=== PATIENT | female | born 1990 | race Caucasian/White ===

== ENCOUNTER 2017-05-19 13:04 | Outpatient (CLI) | payer OTHER ==
[~2017-05-19] VITALS: Ht 157.5 cm; Wt 50.0 kg
[2017-05-19 13:31] VITALS: BP 101/59
[2017-05-19 13:58] LABS: MEAN CORPUSCULAR HEMOGLOBIN 31.1 pg (27.0-33.0); MEAN CORPUSCULAR VOLUME 86.4 fl (80.0-96.0); RED CELL DISTRIBUTION WIDTH 13.5 % (11.5-14.5)
--- NOTE | 2017-05-19 17:49 | HPE ---
DATE OF ADMISSION: 05/19/2017 HISTORY: This is a 27-year-old 4, para 2, abortio 1, at 20 weeks and 1 day gestation. Fall on her buttocks. No loss of fluid. No loss of consciousness. movements are present. Last menstrual period (LMP) 12/20/2016, estimated date of confinement (EDC) 09/27/2017. She had a history of dysuria and kidney stones. PAST HISTORY: 2011: 41 weeks spontaneous vaginal delivery male 6 pounds 15 ounces, induction of labor. 2013: 41 weeks spontaneous vaginal delivery 6 pounds 6 ounce female induction of labor. 2016: Spontaneous . LABORATORY DATA: B positive, HIV negative. Hepatitis negative, RPR negative. Varicella immune. Pap normal. Urine negative. Gonorrhea and chlamydia are negative. Hemoglobin 11.0, hematocrit 30.7, platelets 237. Betke-Kleihauer is pending. PHYSICAL EXAMINATION: On examination no acute distress. Symphysis fundus height is 20, vertex presenting. Ultrasound shows ALF 10.6, placenta anterior. Cervix is closed. Good movement. Cardiac activity 154 beats per minute. Blood pressure 101/59, respirations 18, pulse 71, temperature 98.5. Hemoglobin 11.0, hematocrit 30.2, platelets are 237. The rest the examination is unremarkable. Normocephalic, atraumatic. Neck full range of motion. Pupils equal and reactive to light. Distal pulses symmetric. No evidence of deep venous thrombosis (DVT), pulmonary embolism (PE), or superficial phlebitis. No costovertebral angle tenderness. Nontender uterus. Four quadrant bowel sounds are noted. heart is present. No rashes, lesions or pruritus. No arthralgia or myalgia. No complaints of cough, wheezes, shortness of breath or dyspnea on exertion. No chest pain. No bruising. No bleeding. Neuro complete. No incontinence, urgency or frequency. No nausea, vomiting, diarrhea or constipation. She does not smoke or drink or abuse drugs. There is no domestic violence. ASSESSMENT: In summary we have a 20+ week of gestation who had a fall on her buttocks, which she has a bruise on her buttocks but, otherwise insignificant. Precautions were given. The patient was discharged undelivered to followup in the clinic routine time.
== END 2017-05-19 13:49 | disposition home or self-care (01) ==
LOC: M LDO 13:04
PROVIDERS: ATTEND Obstetrics & Gynecology
DX: O99.89 Other specified diseases and conditions complicating pregnancy, childbirth and the puerperium (principal); S30.0XXA Contusion of lower back and pelvis, initial encounter; Z3A.20 20 weeks gestation of pregnancy; X58.XXXA Exposure to other specified factors, initial encounter; Y93.9 Activity, unspecified; Y92.9 Unspecified place or not applicable; Y99.8 Other external cause status

== ENCOUNTER 2017-10-09 02:06 | Inpatient (IN) | payer OTHER ==
[~2017-10-09] VITALS: Ht 157.5 cm; Wt 60.9 kg
[2017-10-09] VITALS (9 sets, daily range): BP systolic 114–130; BP diastolic 54–72
[~2017-10-09 02:06] MED LIST: ZANTTAB PO
[2017-10-09] MEDS ORDERED: OXYTOCIN 30 UNITS IN 0.9% NaCl 500ML IV BAG (J2590) As Ordered ONE (02:22)
[2017-10-09] MEDS ORDERED: LR 1,000 ML IV SCH (02:48)
[2017-10-09] MEDS ORDERED: OXYTOCIN DRIP 30 UNITS in APPROPRIATE DILUENT 1 EA IV SCH (02:48)
--- NOTE | 2017-10-09 02:59 | HPEPDOC ---
Obstetrical History & Physical General Date of Admission Oct 09, 2017 at 02:10 History of Present Illness 27 y/o at 40+6 with reg painful ctx's. Feeling pushy. No LOF/VB. Chief Complaint: Contractions, term Information Provided By: Patient Care Care: Good Care Dating Final EDC by: 1st trimester (US) (7 wk US) Past Medical History Past Obstetrical History : Type of Delivery: Spontaneous Vaginal Del. (both induced at 41 wks, both 's, both 6 lbs, 1 SAB) [employer] History: Spontaneous (x1) Past Medical History Medical History h/o UTI's Surgical History: Appendectomy, [place] teeth Family History Significant Family History: No pertinent family hx Social History Marital Status: Family situation: Spouse/partner home Psychosocial History: No pertinent psych hx * Smoker: non-smoker Alcohol: Denies Drugs: denies Abuse Violence Screening Have you been hit/kicked/slapp: No Have you been sexually assault: No Imunizations Tdap status: current Allergies Coded Allergies: No Known Allergies (Unverified , 05/19/17) Medications Scheduled PRN Ranitidine Hcl (Zantac 150 Maximum Streng) 150 Mg Tab, 1 TAB PO PRN PRN for HEARTBURN/INDIGESTION Physical Examination Physical Examination GENERAL: Alert and oriented times three. BREAST: . ABDOMEN: Gravid and non-tender to touch. FETUS: Is vertex (VTX) by sterile vaginal examination, C/C/BBOW/+2, EFW 3000 EXTREMITIES: No edema. Laboratory Data [facility] Laboratory Tests 2 10/09/17 02:51: Serology Scanned Report Hepatitis B Testing Urine Culture: No Growth Pertinent Laboratoy Data Blood Type: B+ RBC Antibody Screen: Negative HIV: Negative Hepatitis B: Negative Hepatitis C: Unknown Rapid Plasma Reagin: Immune Rubella: Immune Varicella: Immune Chlamydia/Gonorrhea: Negative Group B Streptococcus: Negative Quad Screen Test: Declined Cystic Fibrosis: Declined Anatomy Ultrasound Ultrasound Date: May 16, 2017 Placenta Location: Anterior Normal Anatomy: Yes Placenta Previa: No Assessment Variability: Moderate Accelerations: Positive Decelerations: None Tocometer Frequency: regular Assessment/Plan Assessment Term C/C. Del'd quickly, see del note. Plan Admit and orient. Waste Picker and consent. Group B Streptococcus (GBS) neg Labs and intravenous (IV) per unit protocol. Lactated Ringers (LR) 125/hr Anticipate normal spontaneous delivery () SESSIONS,MENA Rolon MD Oct 09, 2017 02:58
[2017-10-09 03:00] LABS: MEAN CORPUSCULAR HEMOGLOBIN 25.6 pg (27.0-33.0); MEAN CORPUSCULAR VOLUME 77.6 fl (80.0-96.0); PLATELET COUNT, AUTOMATED 350 10^3/uL (150-450); RED CELL DISTRIBUTION WIDTH 14.4 % (11.5-14.5); WHITE BLOOD COUNT 13.6 10^3/uL (4.0-10.0)
[2017-10-09] MEDS ORDERED: ACETAMINOPHEN TAB 650MG DOSE (2X325MG) PO PRN (03:00)
[2017-10-09] MEDS ORDERED: METOCLOPRAMIDE INJ 10MG/2ML VIAL (J2765) IV PRN (03:00)
[2017-10-09] MEDS ORDERED: MEASLES,MUMPS,RUBELLA VACCINE INJ (MMR-II) (90707) SC SCH (03:00)
[2017-10-09] MEDS ORDERED: DIBUCAINE 1% OINTMENT 30GM TOP PRN (03:00)
[2017-10-09] MEDS ORDERED: RHOGAM 300 MCG (1500 IU) INJ (J2790) IM SCH (03:00)
--- NOTE | 2017-10-09 03:02 | DNPDOC ---
[facility] Delivery Note Delivery Note DATE OF DELIVERY:[id number] @ 0230 PREDELIVERY DIAGNOSIS: 40 6/7 weeks' gestation and labor. POST DELIVERY DIAGNOSIS: Delivered. PROCEDURE: Spontaneous vaginal delivery [employer] OPERATOR: Dr. Arroyo ANESTHESIA: none ESTIMATED BLOOD LOSS: 100 mL. FINDINGS: 6 pound 2 ounce female , Score 9/9, loose nuchal cord times 1 DELIVERY SUMMARY: Once an IV was placed, had her start pushing, and AROM with pickups done, good effort and only a few sets of pushes. Vtx del'd w/o delay and also the ant/post shoulders. Vigorous to abd, cord C/C by FOB. Cord blood. Placenta intact with slight traction. Pit going, fundus firm. No lacs. Uncomplicated. MENA ARROYO MD Oct 09, 2017 03:02
[2017-10-09] MEDS ORDERED: ACET50TA PO (03:35)
[2017-10-09] MEDS: IBUPROFEN 800 MG TAB PO PRN ×2 (05:14→14:06)
[2017-10-09] MEDS: PRENATAL VITAMINS CHEWABLE TABLET PO SCH (08:35)
[2017-10-09] MEDS: DOCUSATE SODIUM 100 MG CAP PO SCH ×2 (08:35→19:50)
[2017-10-10] MEDS: IBUPROFEN 800 MG TAB PO PRN (02:49)
[2017-10-10 06:00] VITALS: BP 128/58
[2017-10-10] MEDS: DOCUSATE SODIUM 100 MG CAP PO SCH (08:53)
[2017-10-10] MEDS: PRENATAL VITAMINS CHEWABLE TABLET PO SCH (08:53)
[2017-10-10] MEDS ORDERED: PRENTAB9 PO (10:53)
[2017-10-10] MEDS ORDERED: IBUP-1114 PO (10:53)
[2017-10-10] MEDS ORDERED: NUPE1OIN2 TOP (10:53)
[2017-10-10] MEDS ORDERED: ACET50TA PO (10:53)
[2017-10-10] MEDS ORDERED: COLA100C5 PO (10:53)
== END 2017-10-10 11:30 | disposition home or self-care (01) | DRG 775 ==
LOC: M LDO 02:06 → M LDI 02:10 → M OBS 05:05
PROVIDERS: ADMIT Obstetrics & Gynecology; ATTEND Obstetrics & Gynecology
PROC: 10E0XZZ Delivery of Products of Conception, External Approach (ICD-10-PCS; principal; 2017-10-09)
PROC: 10907ZC Drainage of Amniotic Fluid, Therapeutic from Products of Conception, Via Natural or Artificial Opening (ICD-10-PCS; 2017-10-09)
DX: O48.0 Post-term pregnancy (principal); Z37.0 Single live birth; Z3A.40 40 weeks gestation of pregnancy